=== PATIENT | male | born 1940 | race Caucasian/White ===

== ENCOUNTER 2017-01-09 15:52 | Emergency (ER) | payer OTHER ==
[~2017-01-09] VITALS: Ht 180.3 cm; Wt 148.8 kg
[~2017-01-09 15:52] MED LIST: ALLOPURINOL 10100 M1 PO; BAYER CHEWABLE81 MG PO; CENTRUM SILVER1 EAC2 PO; CITRATE OF MAG296 ML PO; CORICIDIN HBP1 EACH PO; COZAAR100 MG PO; DEPO-TESTO200 MG/1 M IM; DILTIAZEM ER120 M1 PO; DOCUSATE SODIU100 MG; FLONASE 0.05%50 MCG NASAL; HYDRALAZINE 2525 M1 PO; HYDROCODON-ACE1 EAC1 PO; HYDROCODON-ACE1 EAC2 PO; HYDROCODONE-APA1 TA1 PO; LEVAQUIN 500 M500 M7 PO; LEVOXYL75 MCG PO; LOPRESSOR50 PO; MIRALAX255 GM; MOBIC15 MG PO; PERCOCET 5-3251 EACH PO; PREDNISONE 10 M10 MG PO; ROBITUSSIN DM118 ML PO; THERA-M CAPLET1 EACH PO; TYLENOL325 MG PO; VENTOLIN HFA 1818 GM INH; XARELTO10 M1 PO
== END 2017-01-09 18:52 | disposition home or self-care (01) ==
LOC: ER 15:52
DX: S01.112A Laceration without foreign body of left eyelid and periocular area, initial encounter (principal); S80.01XA Contusion of right knee, initial encounter; I10 Essential (primary) hypertension; E03.9 Hypothyroidism, unspecified; F17.210 Nicotine dependence, cigarettes, uncomplicated; Z90.49 Acquired absence of other specified parts of digestive tract; Z88.6 Allergy status to analgesic agent; W01.0XXA Fall on same level from slipping, tripping and stumbling without subsequent striking against object, initial encounter; Y93.89 Activity, other specified; Y92.012 Bathroom of single-family (private) house as the place of occurrence of the external cause; Y99.9 Unspecified external cause status

== ENCOUNTER 2021-11-07 17:38 | Inpatient (IN) | payer OTHER ==
[~2021-11-07] VITALS: Ht 180.3 cm; Wt 144.9 kg
--- NOTE | ~2021-11-07 | EMS ---
[address] [address] EMS Patient Care Report Name: PIERCE VELAZQUEZ Room #: 363-P ADM IN M.R.#: [id number] Admission: 11/07/21 Attend Phys: Richard Wood MD Discharge: Date of : 38 Report #: [id number] THIS REPORT FOR: //name// Report Transmitted: 11/12/2021 10:07 EMS Care Summary [facility] Incident [id number] @ 11/07/2021 16:37 Incident Location [address] [place] [address] Patient PIERCE VELAZQUEZ Male, 81 Years 1940 Patient Address [address] [place] [address] Patient History Hypertension (HTN),Atrial Fibrillation,Back Pain (Chronic), Patient Allergies No known allergies, Patient Medications Furosemide, Torsemide, Allopurinol, Hydrocodone, Pantoprazole, Chief Complaint "weakness" Disposition Transported No Lights/[place] Dispatch Reason Sick Person Transported To [facility] Narrative S51 dispatched on a sick alpha. Upon arrival, pt was found sitting on a bed, alert and tracking. Pt stated that earlier in the day, he started to feel like he was having "trouble walking" along with weakness and hip pain. Pt denied falling or any LOC. Pt stated that earlier in the day, they had to call [address] [address] EMS Patient Care Report Name: PIERCE VELAZQUEZ Room #: 363-P ADM IN M.R.#: [id number] Admission: 11/07/21 Attend Phys: Richard Wood MD Discharge: Date of : 38 Report #: [id number] because he "let himself down to the floor due to feeling weak." Pt stated that he needed assistance getting up to his feet which is why he called the first time. (This is now the second time calling 911). Pt was aox4 w/ a gcs of 15. Baseline vital signs were obtained. CSS was performed, showing negative in all enriquez. PMS was still noted in all extremities. Pt was able to stand with assistance and sit back down onto the cot. (personnel was able to carry the cot inside the residence and into the bedroom). Pt was secured to the cot and taken out to the ambulance. Once in the back, another set of vital signs were obtained and IV access was established. Nasal Cannula was placed on the pt due to his Non emergent transport was initiated. En route, the pt was continuously monitored. Secondary assessment showed no significant changes within the patient. S51 arrived w/o incident. Pt was taken to room 11 upon arrival. Pt was sheet lifted from the cot to the hospital bed w/o incident. Pt report was given at bedside. Appropriate signatures were obtained. S51 then returned to service. Initial Vitals @16:49P: 89,SpO2: 93, @16:54P: 84,SpO2: 91, @17:21P: 91,SpO2: 98, @17:26 @16:49P: 94,SpO2: 92, @17:07 @16:45P: 98,R: 16,Pain: 0/10,GCS: 15,SpO2: 92, @17:03P: 94,R: 20,BP: 154/106,GCS: 15,SpO2: 96,Revised Trauma: 12, @16:47P: 90,R: 16,BP: 175/151,GCS: 15,Glucose: 110,SpO2: 92,Revised Trauma: 12, Impression Generalized Weakness Procedures @17:10 ALS AssessmentSucceeded @17:19 IV Therapy - Saline Lock 10cc (20 ga) Site: Antecubital-Left Response: UnchangedSucceeded @17:07 12-Lead ECGSucceeded @17:26 12-Lead ECGSucceeded @16:55 Oxygen FlowRate: 2 Device: Nasal Cannula (NC) Response: ImprovedSucceeded @16:49 3-Lead ECGSucceeded Timeline 16:35,Call Received [address] [address] EMS Patient Care Report Name: VELAZQUEZPIERCE BERNICE Room #: 363-P ADM IN M.R.#: [id number] Admission: 11/07/21 Attend Phys: Richard Wood MD Discharge: Date of : 38 Report #: [id number] 16:35,Psap Call 16:37,Dispatched 16:39,En Route 16:42,Initial Responder On Scene 16:42,On Scene 16:45,At Patient 16:45,BP: / M,PULSE: 98,RR: 16 R,SPO2: 92 Ox,ETCO2: ,BG: ,PAIN: 0,GCS: 15, 16:47,BP: 175/151 M,PULSE: 90,RR: 16 R,SPO2: 92 Ox,ETCO2: ,B,PAIN: ,GCS: 15, 16:49,3-Lead ECG,Succeeded, 16:49,BP: / M,PULSE: 94,RR: R,SPO2: 92 Ox,ETCO2: ,BG: ,PAIN: ,GCS: , 16:49,BP: / M,PULSE: 89,RR: R,SPO2: 93 Ox,ETCO2: ,BG: ,PAIN: ,GCS: , 16:54,BP: / M,PULSE: 84,RR: R,SPO2: 91 Ox,ETCO2: ,BG: ,PAIN: ,GCS: , 16:55,Oxygen FlowRate: 2 Device: Nasal Cannula (NC) Response: ImprovedSucceeded, 17:03,BP: 154/106 M,PULSE: 94,RR: 20 R,SPO2: 96 Ox,ETCO2: ,BG: ,PAIN: ,GCS: 15, 17:07,12-Lead ECG,Succeeded, 17:07,BP: / M,PULSE: ,RR: R,SPO2: Ox,ETCO2: ,BG: ,PAIN: ,GCS: , 17:10,ALS Assessment,Succeeded, 17:10,Depart Scene 17:19,IV Therapy - Saline Lock 10cc 20 ga Site: Antecubital-Left,Response: UnchangedSucceeded, 17:21,BP: / M,PULSE: 91,RR: R,SPO2: 98 Ox,ETCO2: ,BG: ,PAIN: ,GCS: , 17:26,12-Lead ECG,Succeeded, 17:26,BP: / M,PULSE: ,RR: R,SPO2: Ox,ETCO2: ,BG: ,PAIN: ,GCS: , 17:35,At Destination 17:40,Transfer Patient 18:05,Call Closed Disclaimer v1.1 Copyright 2021 [employer] This EMS Care Summary contains data elements from the applicable legal record (which may be displayed differently). It is designed to provide pertinent information for the following purposes: continuity of care, clinical quality, and state data reporting. The complete legal record is available to ED staff and administrators of the receiving hospital in ES's Patient Tracker. All data is provided "as is."
--- NOTE | ~2021-11-07 | EMS ---
[address] [address] EMS Patient Care Report Name: PIERCE VELAZQUEZ Room #: 363-P ADM IN M.R.#: [id number] Admission: 11/07/21 Attend Phys: Julieta Olvera MD Discharge: Date of : 38 Report #: [id number] THIS REPORT FOR: //name// Report Transmitted: 11/08/2021 06:44 EMS Care Summary [facility] Incident [id number] @ 11/07/2021 16:37 Incident Location [address] [place] [address] Patient PIERCE VELAZQUEZ Male, 81 Years 1940 Patient Address [address] [place] [address] Patient History Hypertension (HTN),Atrial Fibrillation,Back Pain (Chronic), Patient Allergies No known allergies, Patient Medications Furosemide, Torsemide, Allopurinol, Hydrocodone, Pantoprazole, Chief Complaint "weakness" Disposition Transported No Lights/[place] Dispatch Reason Sick Person Transported To [facility] Narrative S51 dispatched on a sick alpha. Upon arrival, pt was found sitting on a bed, alert and tracking. Pt stated that earlier in the day, he started to feel like he was having "trouble walking" along with weakness and hip pain. Pt denied falling or any LOC. Pt stated that earlier in the day, they had to call [address] [address] EMS Patient Care Report Name: PIERCE VELAZQUEZ Room #: 363-P ADM IN M.R.#: [id number] Admission: 11/07/21 Attend Phys: Julieta Olvera MD Discharge: Date of : 38 Report #: [id number] because he "let himself down to the floor due to feeling weak." Pt stated that he needed assistance getting up to his feet which is why he called the first time. (This is now the second time calling 911). Pt was aox4 w/ a gcs of 15. Baseline vital signs were obtained. CSS was performed, showing negative in all enriquez. PMS was still noted in all extremities. Pt was able to stand with assistance and sit back down onto the cot. (personnel was able to carry the cot inside the residence and into the bedroom). Pt was secured to the cot and taken out to the ambulance. Once in the back, another set of vital signs were obtained and IV access was established. Nasal Cannula was placed on the pt due to his Non emergent transport was initiated. En route, the pt was continuously monitored. Secondary assessment showed no significant changes within the patient. S51 arrived w/o incident. Pt was taken to room 11 upon arrival. Pt was sheet lifted from the cot to the hospital bed w/o incident. Pt report was given at bedside. Appropriate signatures were obtained. S51 then returned to service. Initial Vitals @16:49P: 89,SpO2: 93, @16:54P: 84,SpO2: 91, @17:21P: 91,SpO2: 98, @17:26 @16:49P: 94,SpO2: 92, @17:03P: 94,BP: 154/106,SpO2: 91, @16:47P: 90,BP: 175/151,SpO2: 92, @17:07 @16:45P: 98,R: 16,Pain: 0/10,GCS: 15,SpO2: 92, Impression Generalized Weakness Procedures @17:10 ALS AssessmentSucceeded @17:19 IV Therapy - Saline Lock 10cc (20 ga) Site: Antecubital-Left Response: UnchangedSucceeded @17:07 12-Lead ECGSucceeded @17:26 12-Lead ECGSucceeded @16:55 Oxygen FlowRate: 2 Device: Nasal Cannula (NC) Response: ImprovedSucceeded Timeline 16:35,Call Received 16:35,Psap Call [address] [address] EMS Patient Care Report Name: PIERCE VELAZQUEZ Room #: 363-P ADM IN M.R.#: [id number] Admission: 11/07/21 Attend Phys: Julieta Olvera MD Discharge: Date of : 38 Report #: [id number] 16:37,Dispatched 16:39,En Route 16:42,Initial Responder On Scene 16:42,On Scene 16:45,At Patient 16:45,BP: / M,PULSE: 98,RR: 16 R,SPO2: 92 Ox,ETCO2: ,BG: ,PAIN: 0,GCS: 15, 16:47,BP: 175/151 M,PULSE: 90,RR: R,SPO2: 92 Ox,ETCO2: ,BG: ,PAIN: ,GCS: , 16:49,BP: / M,PULSE: 94,RR: R,SPO2: 92 Ox,ETCO2: ,BG: ,PAIN: ,GCS: , 16:49,BP: / M,PULSE: 89,RR: R,SPO2: 93 Ox,ETCO2: ,BG: ,PAIN: ,GCS: , 16:54,BP: / M,PULSE: 84,RR: R,SPO2: 91 Ox,ETCO2: ,BG: ,PAIN: ,GCS: , 16:55,Oxygen FlowRate: 2 Device: Nasal Cannula (NC) Response: ImprovedSucceeded, 17:03,BP: 154/106 M,PULSE: 94,RR: R,SPO2: 91 Ox,ETCO2: ,BG: ,PAIN: ,GCS: , 17:07,12-Lead ECG,Succeeded, 17:07,BP: / M,PULSE: ,RR: R,SPO2: Ox,ETCO2: ,BG: ,PAIN: ,GCS: , 17:10,ALS Assessment,Succeeded, 17:10,Depart Scene 17:19,IV Therapy - Saline Lock 10cc 20 ga Site: Antecubital-Left,Response: UnchangedSucceeded, 17:21,BP: / M,PULSE: 91,RR: R,SPO2: 98 Ox,ETCO2: ,BG: ,PAIN: ,GCS: , 17:26,12-Lead ECG,Succeeded, 17:26,BP: / M,PULSE: ,RR: R,SPO2: Ox,ETCO2: ,BG: ,PAIN: ,GCS: , 17:35,At Destination 17:40,Transfer Patient 18:05,Call Closed Disclaimer v1.1 Copyright 2021 [employer] This EMS Care Summary contains data elements from the applicable legal record (which may be displayed differently). It is designed to provide pertinent information for the following purposes: continuity of care, clinical quality, and state data reporting. The complete legal record is available to ED staff and administrators of the receiving hospital in [employer]'s Patient Tracker. All data is provided "as is."
[2021-11-07 17:39] VITALS: BP 195/103
[2021-11-07 18:02] LABS: ABSOLUTE NEUTROPHILS 4.6 thou/uL (1.4-8.2); BASOPHILS 0.6 % (0.0-2.0); EOSINOPHILS 2.9 % (0.0-3.0); HEMATOCRIT 40.6 % (42.0-52.0); HEMOGLOBIN 12.7 gm/dL (14.0-18.0); LYMPHOCYTES 8.9 % (24.0-44.0); MCH 29.4 pg (26.0-34.0); MCHC 31.3 g/dL (28.0-37.0); MONOCYTES 13.6 % (1.0-8.0); PLATELET COUNT 207 thou/uL (150-400); RBC 4.32 mil/uL (4.50-6.00); RDW 14.2 % (10.5-14.5); WBC 6.2 thou/uL (4.0-11.0)
--- NOTE | 2021-11-07 18:08 | NUR ---
PT PRESENTS FROM HOME C/O OF WEAKNESS, LIVES AT HOME, REPORTS WEAKNESS STARTED THIS MORNING AT 10AM. PT REPORTS SOME TINGLING GENERALIZED THROUGHOUT BODY AT THAT TIME. PT DENIES ANY DIFFICULTY SPEAKING OR SLURRED SPEACH, DENIES ANY UNEQUAL STRENGTH AT THAT TIME. PT REPORTS "WEAKNESS DUE TO PAIN". PT REPORTED TO HAVE TAKEN SOME OF HIS OXYCODONE TODAY DUE TO CHRONIC HIP PAIN. PT DENIES FURTHER COMPLAINTS. ERP AT BEDSIDE TO R/O CODE STROKE.
[2021-11-07 18:10] LABS: CREATININE 1.3 mg/dL (0.7-1.3); POTASSIUM 3.7 mmol/L (3.5-5.1)
[2021-11-07 18:20] LABS: ALBUMIN 3.3 g/dL (3.4-5.0); TOTAL BILIRUBIN 0.3 mg/dL (0.2-1.0); TOTAL PROTEIN 7.7 g/dL (6.4-8.2)
[2021-11-07 18:57] LABS: URINE BILIRUBIN NEGATIVE (Negative); URINE BLOOD NEGATIVE (Negative); URINE CLARITY CLEAR; URINE COLOR YELLOW; URINE GLUCOSE-RANDOM* NEGATIVE (Negative); URINE KETONES NEGATIVE (Negative); URINE LEUKOCYTES-REFLEX NEGATIVE (Negative); URINE NITRITE-REFLEX NEGATIVE (Negative); URINE PROTEIN (DIPSTICK) NEGATIVE (Negative); URINE SPECIFIC GRAVITY 1.015 (1.005-1.035); URINE UROBILINOGEN 0.2 E.U./dl (0.2-1.0)
[2021-11-07 19:06] LABS: AMP/METHAMP Negative (Negative); BARBITURATES Negative (Negative); BENZODIAZEPINES Negative (Negative); COCAINE Negative (Negative); METHADONE Negative (Negative); OPIATES POSITIVE (Negative); PCP Negative (Negative)
--- NOTE | 2021-11-07 19:19 | NUR ---
pt report given to COBY cardoza
--- NOTE | 2021-11-07 21:01 | NUR ---
TURNED OFF 2LITERS NC OXYGEN TO CHECK ROOM AIR PULSE OX. UNABLE TO MAINTAIN SATS OVER 88%. COUGHED SEVERAL TIMES DURING THIS TIME, DID NOT IMPROVE SATS. OXYGEN NOW AT 3LITERS NC.
[2021-11-07 23:09] VITALS: BP 183/96
[2021-11-08] VITALS (7 sets, daily range): BP systolic 104–180; BP diastolic 66–122
--- NOTE | 2021-11-08 02:40 | NUR ---
PT ADMITTED TO 363 FROM ER FROM HOME FOR WEAKNESS, COUGH, AND COVID +. PT IS VERY [place] AND IS A POOR HISTORIAN. HIS DID NOT ANWSER THE PHONE. ELECTRIC MULE OPERATOR TRIED TO CALL HER FOR INFORMATION AND GET UPDATED MED LIST. PT DOES NOT KNOW ALL HIS MEDS. WILL ATTEMPT TO REACH IN AM. BP ELEVATED UPON ARRIVAL TO THE FLOOR. HYDRALAZINE GIVEN IV. NOTIFIED ELECTRIC MULE OPERATOR HYDRALAZINE ONLY BROUGHT BP DOWN TO 160/100. NO ORDERS GIVEN FOR NOW. PT IS NOW SLEEPING QUIETLY. NO S/S DISTRESS. UNLABORED ON 2LNC. LUNGS HAVE FAINT CRACKLES AND ARE DIMINISHED. LASIX GIVEN PER GUIDE EXCURSION WHEN PT CAME TO THE FLOOR. PT INC OF URINE AND VOIDS IN THE URINAL DARK YELLOW URINE. INSTRUCTED PT ON FALL PRECAUTIONS AND CALL LIGHT, ETC. PT DENIED PAIN AT 0200 WHEN I ATTEMPTED TO GIVEN HIM THE HYDROCODONE HE REQUESTED FOR BACK AND LLE PAIN. ELECTRIC MULE OPERATOR NOTIFIED I WAS UNABLE TO GET HIM TO TAKE THE PAIN PILL AND WOULD NEED ANOTHER BP MED TO GET BP DOWN. NO ORDERS GIVEN FOR NOW E BP. BED DOWN. CALL LIGHTIN REACH. BED ALARM IS ON. CAREPLAN INITIATED. WILL CONTINUE TO MONITOR PT FOR CHANGES.
--- NOTE | 2021-11-08 06:48 | NUR ---
PT ALERT X3. FORGETFULL TO TIME THIS AM. FOLLOWS COMMANDS. PT IS WEAK. VSS AFEBRILE THIS AM. SAT 96% THIS AM ON 2LNC. INC OF URINE SEVERAL TIMES AFTER LASIX. LUNGS SOUND DIMINISHED WITH LESS CRACKLES THIS AM. DENIED BACK OR LLE PAIN THIS AM. NO S/S DISTRESS.
[2021-11-08 06:50] LABS: HEMATOCRIT 42.5 % (42.0-52.0); HEMOGLOBIN 13.1 gm/dL (14.0-18.0); MCH 29.6 pg (26.0-34.0); MCHC 30.8 g/dL (28.0-37.0); MCV 96.1 fL (80.0-100.0); RBC 4.42 mil/uL (4.50-6.00); RDW 14.7 % (10.5-14.5); WBC 6.1 thou/uL (4.0-11.0)
[2021-11-08 06:53] LABS: CALCIUM 9.4 mg/dL (8.5-10.1); CREATININE 1.3 mg/dL (0.7-1.3); POTASSIUM 3.6 mmol/L (3.5-5.1)
--- NOTE | 2021-11-08 08:00 | EKG ---
[place] [address] [facility] [place] [address] ELECTROCARDIOGRAM REPORT Name: KENNEDY VELAZQUEZETT BERNICE Room #: 363- ADM IN M.R.#: [id number] Admission: 11/07/21 Attend Phys: Julieta Olvera MD Discharge: Date of : 38 Report #: [id number] [facility] ED Test Date: 2021-11-07 Test Time: 17:59:21 Pat Name: PIERCE VELAZUQEZ Department: Room: [facility] Gender: M Associate Media Planner: : 1940 Requested By: Marisol Oquendo Order Number: [id number] MD: Scout Torres Measurements Intervals [place] Rate: 90 P: 107 NM: 161 QRS: -39 QRSD: 130 T: -10 QT: 411 QTc: 503 Interpretive Statements Atrial-sensed ventricular-paced rhythm No further analysis attempted due to paced rhythm Compared to ECG 04/20/2015 11:01:31 Sinus rhythm no longer present ST (T wave) deviation no longer present Electronically Signed On 11-08-2021 7:59:58 TRAIN OPERATIONS SUPERVISOR by Scout Torres [email or web address] <ELECTRONICALLY SIGNED> By: Scout Torres MD, [facility] 11/08/21 0759 1759 1759 Scout Torres MD, [facility] /EPI
[2021-11-08 11:27] LABS: HCO3 29.8 mmol/L (22.0-26.0); PCO2 55.3 mmHg (35.0-45.0); PO2 84.3 mmHg (80.0-100.0); pH 7.349 (7.360-7.450); sO2 95.7 % (92.0-98.0)
[2021-11-08] MEDS ORDERED: RANITIDINE PO (17:50)
[2021-11-08] MEDS ORDERED: CARVEDILOL12.5 MG PO (17:52)
[2021-11-08] MEDS ORDERED: FLOMAX0.4 MG PO (17:52)
[2021-11-08] MEDS ORDERED: TORSEMIDE20 MG PO (17:53)
[2021-11-08] MEDS ORDERED: ENTRESTO 97 MG1 EACH PO (17:54)
[2021-11-08] MEDS ORDERED: B12-FOLIC ACID1 EACH PO (17:54)
--- NOTE | 2021-11-08 18:18 | NUR ---
PT A/O X 2-4. PT EXTREMELY FORGETFUL. DURING MORNING ASSESSMENT PT WAS A/O X 4. APPROX 11:30 DR STAFFORD WENT INTO PTS ROOM AND NOTICED PT WAS ONLY A/O X 1. CALLED RAPID RESPONSE ON PT. EKG WAS NEGATIVE, HEAD CT WAS NEGATIVE. PT STATED AFTER INCIDENT TO THIS RN "SOMETIMES IM HARD TO WAKE UP, THATS NORMAL FOR ME". PT A/O X 3-4 THIS AFTERNOON. ON 2 L NC. SPOKE WITH AARON, PT SON AND DPMIRANDA, AND GAVE UPDATE. WILL CONTINUE TO MONITOR.
[2021-11-09 05:00] VITALS: BP 145/86
[2021-11-09 05:15] LABS: ALBUMIN 2.9 g/dL (3.4-5.0); CALCIUM 8.6 mg/dL (8.5-10.1); CREATININE 1.1 mg/dL (0.7-1.3); POTASSIUM 4.5 mmol/L (3.5-5.1); TOTAL BILIRUBIN 0.3 mg/dL (0.2-1.0); TOTAL PROTEIN 6.9 g/dL (6.4-8.2)
--- NOTE | 2021-11-09 06:48 | NUR ---
PROGRESS PT LETHARGIC AT START OF SHIFT BUT WOKE EASILY AND RESPONDING TO QUESTIONS. REPORTED BACK PAIN AT A LEVEL OF 5, GAVE HYDROCODONE X2 WITH EFFECT PT SLEPT AFTER. INCONTINENT X 1 AND EXTERNAL CATHETER APPLIED WORKING WITHOUT DIFFICULTY. VSS CONTINUE POC.
--- NOTE | 2021-11-09 07:48 | HC ---
[facility] [address] CONSULTATION Name: PIERCE VELAZQUEZ Room #: 363-P ADM IN M.R.#: [id number] Admission: 11/07/21 Attend Phys: Richard Wood MD Discharge: Date of : 38 Report #: [id number] THIS REPORT FOR: cc: FAM - Family physician unknown FAM - Family physician unknown Arya Logan MD ~ DATE OF SERVICE: 11/08/2021 INFECTIOUS DISEASE CONSULTATION ATTENDING PHYSICIAN: Dr. Wood. REASON FOR EVALUATION: COVID-19 infection, complicated by pneumonitis and respiratory failure. HISTORY OF PRESENT ILLNESS: Chart reviewed. The patient examined. This is an 81-year-old gentleman with history of hypertension and obesity, who was admitted after becoming critically weak, did have a nonproductive cough and some progressive dyspnea as well. He was evaluated and found to be hypoxic with saturations of upper 80s on room air. He was confirmed to have a positive coronavirus-19 test. Urinalysis was otherwise unremarkable. Chest x-ray showed no acute process; however, has required supplemental oxygen 4 liters per nasal cannula. Pro-calcitonin less than 0.05. He has not had fevers since admission. Current oxygen therapy is at 2 liters. He was empirically started on dexamethasone and vitamins. ALLERGIES: CELEBREX. CURRENT MEDICATIONS: Include dexamethasone, sliding scale insulin, enoxaparin, ascorbic acid, famotidine, hydrocodone as needed, zinc, ipratropium, albuterol inhaler and p.r.n. ondansetron. PAST MEDICAL HISTORY: Hypertension, hypothyroidism, previous knee replacements and obesity. SOCIAL HISTORY: Former smoker, no ethanol, no illicit drug use. FAMILY HISTORY: Noncontributory. REVIEW OF SYSTEMS: Otherwise, unremarkable. PHYSICAL EXAMINATION: GENERAL: He is alert, appears ill, not overtly toxic. He is mildly encephalopathic, appears pale, moderate distress. VITAL SIGNS: Temperature 98, pulse 102, respirations 16, blood pressure 104/69. SKIN: Warm, dry, no rashes. [facility] [address] [place] [address] CONSULTATION Name: PIERCE VELAZQUEZ BERNICE Room #: 363-P [facility] IN M.R.#: [id number] Admission: 11/07/21 Attend Phys: Richard Wood MD Discharge: Date of : 38 Report #: [id number] HEENT: Normocephalic. Extraocular muscles intact. Nasal cannula in place. NECK: Supple. LUNGS: Diminished overall. Scattered crackles at the bases. HEART: Distant, borderline tachycardic. Appears to be regular. I do not appreciate a murmur. ABDOMEN: Obese, firm. No peritoneal signs. GENITOURINARY AND RECTAL: Deferred. LABORATORY DATA: CTA of the head and neck, nothing acute. ABGs: A pH of 7.349, pCO2 of 55.3, pO2 of 84.3 on 2 liters. ProBNP of 1712. Chest x-ray without acute process. Sed rate of 30. Pro-calcitonin less than 0.05. TSH of 3.021. CBC: White count 6.2, H and H 12.7 and 40.6 and platelets of 207. ASSESSMENT AND PLAN: COVID-19 infection, complicated by hypoxia. We will initiate therapy with remdesivir in addition to the corticosteroids. He remains quite tenuous at this point, certainly at risk for clinical deterioration given his overall health status. Monitor expectantly. Could add immune modulating treatment as well as required. <ELECTRONICALLY SIGNED> By: Arya Logan MD 11/09/21 0748 1439 2117 Arya Logan MD /nt
[2021-11-09 07:49] VITALS: BP 149/79
--- NOTE | 2021-11-09 08:37 | EKG ---
[address] [place] [address] ELECTROCARDIOGRAM REPORT Name: PIERCE VELAZQUEZ Room #: 363-P ADM IN M.R.#: [id number] Admission: 11/07/21 Attend Phys: Richard Wood MD Discharge: Date of : 38 Report #: [id number] [facility] Test Date: 2021-11-08 Test Time: 11:19:37 Pat Name: PIERCE VELAZQUEZ Department: Room: 363 P Gender: M Carbon Setter: HAY : 1940 Requested By: Richard Wood Order Number: [id number] MD: Scout Torres Measurements Intervals [place] Rate: 91 P: 59 OR: 157 QRS: -59 QRSD: 135 T: -20 QT: 399 QTc: 492 Interpretive Statements Atrial-sensed ventricular-paced rhythm No further analysis attempted due to paced rhythm Compared to ECG 11/07/2021 17:59:21 No significant changes Electronically Signed On 11-09-2021 8:37:26 SEPTIC TANK SERVICE TECHNICIAN by Scout Torres [email or web address] <ELECTRONICALLY SIGNED> By: Scout Torres MD, [facility] 11/09/21 0837 1119 1119 Scout Torres MD, [facility] /EPI
[2021-11-09 11:29] VITALS: BP 149/79
--- NOTE | 2021-11-09 12:41 | NUR ---
RD consulted r/t obesity. Pt with BMI 47, extreme class III obesity. He is admitted with hypoxia et covid+. Noted with BLE edema, on lasix with good diuresis noted. 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 Intakes on heart healthy diet increased throughout the day yesterday with 10% at bkft, 30% at lunch and 50% at dinner. On insulin, steroid, IVF, Vit C and zinc. Suspect increase in po intake with progression of tx of covid as he gains strength. Will add glucerna at lunch until po is consistently >75% at meals. Low nutrition risk with interventions initiated.
--- NOTE | 2021-11-09 13:43 | NUR ---
INITIAL ASSESSMENT: Received consult. LISS reviewed chart and spoke with nursing and attending physician. Pt was admitted from home due to weakness/hypoxia. Pt had positive COVID test. Placed in Enhanced Isolation. Per chart, pt has received the Pfizer COVID vaccination. DIRECTOR OF REAL ESTATE and Code Stroke called yesterday. Pt is currently afebrile and on 2-3L of O2. Pt is on IV steroids and Remdesivir. Therapy has been ordered. LISS placed call to pt's room. No answer. LISS spoke with pt's son, Dawson, via phone ([phone]). Introduced role of SW. Pt is normally alert/orientated x 4 and lives at home with his and Dawson. Prior to admission, pt was using a walker. There are 2 steps to enter the home. No steps inside. Pt was not on O2 prior to admission. Pt's has home O2 in place through [facility]. If pt needs home O2, they would prefer to use the same provider. Pt's PCP is Dr. Genesis Guzmán at [facility]. Pt has used [facility] in the past and would like to use them again. Awaiting therapy evals at this time. LISS is following to assist as needed with discharge planning.
[2021-11-09 15:33] VITALS: BP 153/89
--- NOTE | 2021-11-09 17:27 | NUR ---
PT A/O X 4. PT COMPLAINS OF BACK PAIN 03/30, WITH GOOD RELIEF FROM MEDICATION. PT INCONTINENT OF BLADDER AND BOWELS. SPOKE WITH FAMILY TODAY AND GAVE UPDATE. NO CURRENT NEEDS, WILL CONTINUE TO MONITOR.
[2021-11-09 19:12] VITALS: BP 153/92
--- NOTE | 2021-11-10 04:53 | NUR ---
ASSUMED PT CARE AT 1900. PT HAS NO C/O OF PAIN, NAUSEA/VOMITTING. VSS AFEBRILE. PT IS INCONTINENT OF BOTH BOWEL AND BLADDER. COMPLETED BED BATH DURING THIS SHIFT. PT IS ABLE TO MAKE NEEDS KNOWN. CONTINUE WITH PLAN OF CARE.
[2021-11-10 07:03] LABS: ALBUMIN 2.9 g/dL (3.4-5.0); CALCIUM 8.8 mg/dL (8.5-10.1); CREATININE 1.2 mg/dL (0.7-1.3); POTASSIUM 3.6 mmol/L (3.5-5.1); TOTAL BILIRUBIN 0.1 mg/dL (0.2-1.0); TOTAL PROTEIN 7.2 g/dL (6.4-8.2)
[2021-11-10 07:41] VITALS: BP 154/75
--- NOTE | 2021-11-10 09:40 | 2DMMODE ---
[address] [address] 2 D/M-MODE ECHOCARDIOGRAM Name: PIERCE VELAZQUEZ Room #: 363-P ADM IN M.R.#: [id number] Admission: 11/07/21 Attend Phys: Richard Wood MD Discharge: Date of : 38 Report #: [id number] THIS REPORT FOR: cc: FAM - Family physician unknown FAM - Family physician unknown Calos Benz MD [facility] ~ APPROVED REPORT Study performed: 11/10/2021 08:33:56 EXAM: Limited 2D, Doppler, and color-flow Echocardiogram Patient Location: Bedside Room #: 363 Status: routine BSA: 2.61 HR: 68 bpm BP: 154/75 mmHg Rhythm: Sinus arrhythmia Other Information Study Quality: Poor Technically limited study due to morbid obesity. Indications Bilateral leg edema. COVID + Aortic Valve AoV Peak Darrell.: 1.75 m/s AO Peak Gr.: 12.25 mmHg Tricuspid Valve RAP Estimate: 5.00 mmHg Left Ventricle Poor visualization of the left ventricle. Systolic function appears to be normal. Regional wall motion is not well visualized but grossly normal. Left ventricular systolic function is normal. LVEF is 55-60%. Mild diastolic dysfunction Right Ventricle Right ventricle is not well visualized; appers normal in function. [facility] [address] [address] 2 D/M-MODE ECHOCARDIOGRAM Name: PIERCE VELAZQUEZ Room #: 363-P ADM IN M.R.#: [id number] Admission: 11/07/21 Attend Phys: Richard Wood, Discharge: Date of : 38 Report #: [id number] Probable normal atrial size. Aortic Valve The aortic valve poorly visualized. No aortic regurgitation is noted. There is no aortic valvular stenosis. Mitral Valve The mitral valve is normal in structure. There is no mitral valve regurgitation noted. No evidence of mitral valve stenosis. Tricuspid Valve Tricuspid valve is poorly visualized. There is no tricuspid valve regurgitation noted. Unable to assess PA pressure. Pulmonic Valve Pulmonic valve is not well visualized. Great Vessels Aortic root is not well visualized. IVC is normal in size and collapses >50% with inspiration. Pericardium There is no pericardial effusion. <Conclusion> Limited study Left ventricular systolic function is normal. Regional wall motion is not well visualized but grossly normal. LVEF is 55-60%. Mild diastolic dysfunction The aortic valve poorly visualized. No aortic regurgitation or stenosis. The mitral valve is normal in structure. No mitral valve regurgitation. There is no pericardial effusion. <ELECTRONICALLY SIGNED> By: Calos Benz MD, [facility] 11/10/2140 0940 Calos Benz MD, FACC /INF
[2021-11-10 12:18] VITALS: BP 154/75
[2021-11-10 14:37] VITALS: BP 154/75
--- NOTE | 2021-11-10 14:47 | NUR ---
LISS reviewed chart and spoke with nursing and attending physician. Pt remains in Enhanced Isolation due to COVID. Pt is afebrile and on 2L of O2. Pt is on IV steroids and Remdesivir. Possible weekend discharge. [facility] can accept pt on service. LISS faxed home O2 referral to [facility] and spoke with intake. Portable tank will be delivered to the hospital if pt needs home O2. Pt will need a rest/exercise oximetry prior to discharge to determine home O2 needs. Testing and script for O2 will need to be faxed to [facility]. Discharge ppwk will need to be faxed to . LISS spoke with pt's son, Dawson, to provide update. Dawson is aware and in agreement with discharge plan. Pt's family will be able to provide transportation home. Contact info for and [facility] [place] placed in pt's discharge summary. LISS is following to assist as needed. [facility] -- [facility]--
[2021-11-10 15:09] VITALS: BP 147/75
--- NOTE | 2021-11-10 16:34 | NUR ---
PT IS A/O X 4. PT COMPLAINS OF BACK PAIN WITH GOOD RELIEF FROM PAIN MEDICATION. PT INCONTINENT. PT ON 2 L NC. PT HAS 2+ PITTING EDEMA BILATERALLY ON LE. FALL PRECAUTIONS IN PLACE. WILL CONTINUE TO MONITOR.
[2021-11-10 19:45] VITALS: BP 155/98
[2021-11-11 04:30] VITALS: BP 141/89
--- NOTE | 2021-11-11 04:49 | NUR ---
ASSUMED PT CARE AT 1900. PT WAS ALERT & ORIENTED X 3-4 AT BEGINNING OF SHIFT. PT BEGAN EXPERIENCING ALTERED MENTAL STATUS AT AROUND 0415. PT ATTEMPTED TO GET OUT OF BED AND WAS EXPERIENCING CONFUSION AND WAS DISORIENTED. VITAL SIGNS ARE STABLE. HOWEVER PT IS INCONTINENT OF BLADDER AND HAS FOUL SMELLING URINE. CONTACTED DIE CLEANER AND PROVIDED UPDATE ON MENTAL STATUS CHANGE. RECEIVED ORDERS FOR A UA. WILL CONTINUE TO MONITOR.
[2021-11-11 05:27] LABS: ALBUMIN 3.1 g/dL (3.4-5.0); CALCIUM 8.7 mg/dL (8.5-10.1); CREATININE 1.2 mg/dL (0.7-1.3); TOTAL BILIRUBIN 0.3 mg/dL (0.2-1.0); TOTAL PROTEIN 7.4 g/dL (6.4-8.2)
[2021-11-11 05:34] LABS: POTASSIUM 4.1 mmol/L (3.5-5.1)
[2021-11-11 07:09] LABS: URINE BILIRUBIN NEGATIVE (Negative); URINE BLOOD 2+ (Negative); URINE CLARITY CLEAR; URINE COLOR YELLOW; URINE GLUCOSE-RANDOM* NEGATIVE (Negative); URINE KETONES NEGATIVE (Negative); URINE LEUKOCYTES NEGATIVE (Negative); URINE NITRITE NEGATIVE (Negative); URINE PROTEIN (DIPSTICK) NEGATIVE (Negative); URINE SPECIFIC GRAVITY 1.015 (1.005-1.035); URINE UROBILINOGEN 0.2 E.U./dl (0.2-1.0)
[2021-11-11 07:30] LABS: BACTERIA 1-9 Few /HPF (None Seen); CASTS None Seen /LPF (None Seen); CRYSTALS None Seen /LPF (None Seen); SQUAMOUS None Seen /LPF (0-3); URINE WBC 1-5 Rare /HPF (NONE SEEN)
[2021-11-11 07:51] VITALS: BP 161/99; BP 174/96
[2021-11-11 16:08] VITALS: BP 180/94
[2021-11-11 20:28] VITALS: BP 186/87
[2021-11-12 00:03] VITALS: BP 165/92
[2021-11-12 03:23] VITALS: BP 170/79
--- NOTE | 2021-11-12 05:25 | NUR ---
ASSUMED PT CARE AT 1900. PT IS ALERT & ORIENTED X 1-2. PT HAD PERIODS OF CONFUSION THROUGHOUT SHIFT. PT REMAINS INCONTINENT OF BLADDER. EXTERNAL CATH WAS PLACED HOWEVER PT REMOVED. PT REMOVED HIS SOLDERER FURNACE MULTIPLE TIMES DURING THE NIGHT. PT IS PROGRESSING SLOWLY TOWARDS POC GOALS. CONTINUE WITH PLAN OF CARE.
[2021-11-12 06:04] LABS: ALBUMIN 3.1 g/dL (3.4-5.0); CALCIUM 8.8 mg/dL (8.5-10.1); CREATININE 1.1 mg/dL (0.7-1.3); POTASSIUM 3.4 mmol/L (3.5-5.1); TOTAL BILIRUBIN 0.4 mg/dL (0.2-1.0); TOTAL PROTEIN 7.2 g/dL (6.4-8.2)
[2021-11-12 07:59] VITALS: BP 175/102
[2021-11-12 15:14] VITALS: BP 157/90
[2021-11-12 20:17] VITALS: BP 165/116
[2021-11-13 03:14] VITALS: BP 162/99
--- NOTE | 2021-11-13 06:25 | NUR ---
Pt. oriented to person then later on able to state he is at the hospital and it's October. He has intermittent confusion and very impulsive. C/o back pain and when asked how bad is it he stated it's off the chart. Hydrocodone given last night and again this am. O2 at 1.5L/NC , which he takes off intermittently. He has been frequently reoriented and redirected. Bed alarm on for safety. Incontinent of bladder. Tried external cath but did not work since he pulled it out.
[2021-11-13 07:49] VITALS: BP 163/102
[2021-11-13 10:40] LABS: HEMATOCRIT 45.4 % (42.0-52.0); HEMOGLOBIN 13.8 gm/dL (14.0-18.0); MCH 29.4 pg (26.0-34.0); MCHC 30.4 g/dL (28.0-37.0); MCV 96.6 fL (80.0-100.0); RBC 4.7 mil/uL (4.50-6.00); RDW 14.8 % (10.5-14.5); WBC 7.4 thou/uL (4.0-11.0)
[2021-11-13 10:44] LABS: ALBUMIN 3.1 g/dL (3.4-5.0); CREATININE 0.8 mg/dL (0.7-1.3); TOTAL BILIRUBIN 0.6 mg/dL (0.2-1.0)
[2021-11-13 11:01] LABS: CALCIUM 8.6 mg/dL (8.5-10.1)
[2021-11-13 11:05] LABS: POTASSIUM 4.7 mmol/L (3.5-5.1)
[2021-11-13 11:40] VITALS: BP 139/90
[2021-11-13 11:42] LABS: FOLIC ACID 7.2 ng/mL (8.6-58.9)
--- NOTE | 2021-11-13 12:13 | NUR ---
LISS reviewed chart and spoke with nursing and attending physician. Pt remains in Enhanced Isolation due to COVID. Pt is afebrile and on 1.5L of O2. Pt is progressing towards goals for discharge. Recommendation made for pt to go to post-acute care. LISS was provided with pt's son/DPOA, Hermes's contact info ([phone]). LISS spoke with Hermes via phone. Introduced role of LISS. Hermes states that pt and his live at home. Pt's son, Dawson, lives with them. Hermes reports that family is agreeable with considering post-acute placement for continued rehab services. Hermes states Dawson is not always at home to provide assistance. LISS discussed options for post-acute placement: acute rehab v. SNF. Pt's son prefers acute rehab. LISS explained need for insurance auth from an in-network facility. Pt's son verbalized understanding. Preference is [facility] acute rehab. [facility] is second choice. LISS discussed with rehabilitation counsellor, who states they will submit for insurance auth later today after therapy sees pt. Awaiting input from at this time. LISS is following to assist as needed with discharge planning.
[2021-11-13 15:57] VITALS: BP 160/94
--- NOTE | 2021-11-13 17:23 | NUR ---
CANE FURNITURE MAKER SPOKE WITH MARIE WITH [facility] WHO STATED [facility] NOT IN NETWORK. SHE WENT ON TO SAY THAT PATIENT HAD OON BENEFITS THAT MADE IT THE SAME FINANCIALLY FOR THE PATIENT TO COME TO [facility] IT WOULD BE FOR IN NETWORK FACILITY. (REFERENCE NUMBER [id number]). AUTHORIZATION FOR ACUTE REHAB STAY SUBMITTED THIS DATE. WILL AWAIT DECISION.
[2021-11-13 19:32] VITALS: BP 156/97
[2021-11-14 03:24] VITALS: BP 148/89
[2021-11-14 04:04] LABS: HEMATOCRIT 42.3 % (42.0-52.0); HEMOGLOBIN 13.5 gm/dL (14.0-18.0); MCH 29.1 pg (26.0-34.0); MCHC 31.9 g/dL (28.0-37.0); RBC 4.63 mil/uL (4.50-6.00); RDW 13.9 % (10.5-14.5); WBC 9.1 thou/uL (4.0-11.0)
[2021-11-14 04:52] LABS: MCV 91.3 fL (80.0-100.0)
[2021-11-14 05:29] LABS: CREATININE 1.2 mg/dL (0.7-1.3)
[2021-11-14 06:01] LABS: POTASSIUM 3.3 mmol/L (3.5-5.1)
--- NOTE | 2021-11-14 06:32 | NUR ---
Patient progressing towards outcome goals. Oxygenation optimal on room air but placed on 2L/NC for comfort. Incontinent of bowel and bladder. Frequently inpulsive, forgetful. Has made several attempts to get out of bed, getting agitated, wants to go home, wants to visit his . 100% paced. BP stable. Taking meds with fluids without difficulty.
[2021-11-14 08:13] VITALS: BP 145/74
--- NOTE | 2021-11-14 14:13 | NUR ---
LSIS reviewed chart and spoke with nursing and attending physician. Pt remains in Enhanced Isolation due to COVID. Pt is afebrile and on room air. Psych consulted due to agitation/delirium. Case discussed with [facility] rehabilitation medicine physician. Pt has been accepted. Request for insurance authorization was made yesterday afternoon. Awaiting input from pt's insurance at this time. LISS left voice message for pt's son/DPOA, Hermes, to provide update. LISS is following to assist as needed with discharge planning.
[2021-11-14 15:38] VITALS: BP 107/70
[2021-11-14 19:25] VITALS: BP 118/72
--- NOTE | 2021-11-14 20:14 | NUR ---
PATIENT STARTED HAVING SYMPTOMS OF COVID NOV 05 PER SON...
--- NOTE | 2021-11-15 04:07 | NUR ---
ASSUMED PT CARE AT 1900. PT IS ALERT & ORIENTED X 1-2. PT HAS BEEN RESTLESS THIS SHIFT. ATTEMPTED TO GET OUT OF BED MULTIPLE TIMES. ADMINISTERED HALODOL AND SEROQUEL PRN AND NOTED RELIEF. PT HAD C/O OF BACK PAIN. ADMINISTERED NORCO PRN AND NOTED RELIEF. CURRENTLY ON 1.5L O2 NC AND O2 SATS > 95%. ALL NEEDS ARE MET AT THIS TIME. WILL CONTINUE TO MONITOR.
[2021-11-15 04:20] VITALS: BP 124/64
[2021-11-15 08:12] VITALS: BP 113/77
[2021-11-15 09:24] LABS: HEMATOCRIT 42.7 % (42.0-52.0); HEMOGLOBIN 13.5 gm/dL (14.0-18.0); MCH 29.4 pg (26.0-34.0); MCHC 31.7 g/dL (28.0-37.0); RBC 4.59 mil/uL (4.50-6.00); RDW 14.2 % (10.5-14.5); WBC 9.8 thou/uL (4.0-11.0)
[2021-11-15 09:32] LABS: CREATININE 1.8 mg/dL (0.7-1.3); POTASSIUM 3.5 mmol/L (3.5-5.1)
--- NOTE | 2021-11-15 13:46 | NUR ---
PATIENT IS ALERT AND OREIENTED TO SELF THIS SHIFT. PATIENT IS HARD OF HEARING. PATIENT IS EXTREMELY CONFUSED THIS SHIFT. PATIENT IS ON ENHANCED PRECAUTIONS. PATIENT IS ON ROOM AIR WHEN AWAKE AND 1-2L WHEN ASLEEP. PATIENT IS MEDSURBeem AND HAS BEEN RUNNING VPACED THIS SHIFT. PATIENT IS INCONTINENT OF URINE. PATIENT TRIED TO USE THE URINAL BUT WAS UNSUCCESSFUL. PATIENT HAS REDNESS TO HIS GROIN AREA. SKIN BARRIER OINTMENT IS APPLIED. PATIETN GETS UP WITH TWO ASSIST AND ALOT OF PROMPTING. PATIENT HAS AN IV IN HIS RIGHT HAND. IV IS PATENT AND SALINE LOCKED. PATIENT WILL CONTINUE TO BE MONITORED.
--- NOTE | 2021-11-15 14:21 | NUR ---
LISS reviewed chart and spoke with nursing and attending physician. Pt remains in Enhanced Isolation due to COVID. Pt is afebrile and on 1.5L of O2. Pt has IV haldol ordered for agitation. LISS discussed case with [facility] rehab office coordinator. Awaiting input from insurance at this time. LISS spoke with pt's son, Hermes, via phone to provide update. Pt's son verbalized understanding. LISS is following to assist as needed with discharge planning.
[2021-11-15 15:47] VITALS: BP 93/54
--- NOTE | 2021-11-15 17:23 | NUR ---
AUTHORIZATION DENIED BY INSURANCE THIS DATE, BUT PEER TO PEER OFFERED. CPC CODER SPOKE WITH DR. JOHNSON WHO IS WILLING TO DO PEER TO PEER. PATIENT'S SON JOSÉ LUIS AND CAD DESIGN ENGINEER CALLED AND UPDATED. WILL SCHEDULE PEER TO PEER CALL IN AM DUE TO INSURANCE CLOSED AT THIS TIME.
[2021-11-15 19:43] VITALS: BP 145/98
[2021-11-16 03:51] VITALS: BP 148/85
--- NOTE | 2021-11-16 03:57 | NUR ---
PT IS A&OX4 THIS SHIFT, BUT FORGETFUL AND DOES NOT FOLLOW COMMANDS EASILY, REQUIRES FREQUENT REDIRECTION. AGITATED AROUND HS, REMOVING SENIOR LIVING ADVISOR AND ATTEMPTING TO STAND UNASSISTED. MEDICATED WITH PRN HALDOL AND SEROQUEL. VSS. WILL CONTINUE TO OBSERVE FOR CHANGES.
[2021-11-16 07:41] VITALS: BP 150/87
[2021-11-16 11:47] LABS: HEMATOCRIT 40.2 % (42.0-52.0); HEMOGLOBIN 12.9 gm/dL (14.0-18.0); MCH 29.8 pg (26.0-34.0); MCHC 32.2 g/dL (28.0-37.0); MCV 92.7 fL (80.0-100.0); RBC 4.33 mil/uL (4.50-6.00); RDW 13.9 % (10.5-14.5); WBC 9.5 thou/uL (4.0-11.0)
[2021-11-16 11:59] LABS: ALBUMIN 3.3 g/dL (3.4-5.0); CALCIUM 8.7 mg/dL (8.5-10.1); CREATININE 1.5 mg/dL (0.7-1.3); MAGNESIUM 2.2 mg/dL (1.8-2.4); POTASSIUM 3.9 mmol/L (3.5-5.1); TOTAL BILIRUBIN 0.2 mg/dL (0.2-1.0); TOTAL PROTEIN 7.2 g/dL (6.4-8.2)
--- NOTE | 2021-11-16 13:23 | NUR ---
Patient is alert and oriented x4 this shift. Patient is on enhanced precautions. Patient on room air when awake and 1L of oxygen when asleep. Saúl has had a bed bath this shift and has been incontinent of urine. Patient gets up with one assist gait belt and a walker. Patient has a reddened groin. Area was covered with skin barrier ointment. aJn had zinc ointment applied to his coccyx. Patient has an IV in his right hand that is currently infusing with Normal Saline 0.9% at 80 mL's/ hr. Patient will continue to be monitored.
--- NOTE | 2021-11-16 14:34 | NUR ---
Nutrition followup: pt continues on [facility] with COVID. PO intake overall 50% of meals. Today so far has ate 80-100% of meals. Receives glucerna daily, some intake recorded. Weights 337# to 319#. Prior need for diuresis. Follow trends. Folate deficiency, on supplement. 11/14 BM. Plan possible rehab transfer. Low risk with interventions in place.
[2021-11-16 15:24] VITALS: BP 143/101
--- NOTE | 2021-11-16 16:48 | NUR ---
LISS reviewed chart and spoke with nursing and attending physician. Pt remains in Enhanced Isolation due to COVID. Pt is afebrile and on room air. Authorization for inpt acute rehab was denied. Peer to peer completed this afternoon by rehab physician. Denial was overturned. Pt is able to be admitted as rehab status. LISS left voice message for pt's son, Hermes, to provide update. Unsure if pt will be admitted as rehab status later today or tomorrow. Awaiting input from [facility] at this time. LISS is following to assist as needed with discharge planning.
[2021-11-16 19:55] VITALS: BP 106/46
--- NOTE | 2021-11-17 01:44 | NUR ---
PROGRESS PT PROGRESSING WITH GOALS. CONFUSION SUBSIDING AND PT A/O X4. UP WITH 1 GB AND WALKER. ON 1.5 LITERS O2 VIA NC. VSS, TELEMETRY INTACT READING A-PACED WITH RATES IN THE 60'S. STILL REPORTS BACK PAIN AND TAKING HYDROCODONE Q6HRS. PLAN IS TO TRANSITION TO REHAB STATUS TOMORROW.
[2021-11-17 03:14] VITALS: BP 125/66
[2021-11-17 08:24] VITALS: BP 135/71
[2021-11-17 09:01] VITALS: BP 135/71
[2021-11-17] MEDS ORDERED: PEPCID20 MG PO (12:36)
[2021-11-17] MEDS ORDERED: FOLIC ACID1 MG PO (12:36)
[2021-11-17] MEDS ORDERED: SEROQUEL 50 MG50 MG PO (12:36)
[2021-11-17] MEDS ORDERED: HALOPERIDOL 1 MG1 MG PO (12:36)
[2021-11-17] MEDS ORDERED: SEROQUEL 25 MG25 M1 PO (12:36)
[2021-11-17] MEDS ORDERED: VITAMIN C1000 MG PO (12:36)
[2021-11-17] MEDS ORDERED: IPRAT-ALBUT 0.5-3 ML INH (12:36)
[2021-11-17] MEDS ORDERED: TYLENOL325 MG PO (12:36)
[2021-11-17] MEDS ORDERED: ENOXAPARIN40 MG/0.4 SUBQ (12:36)
[2021-11-17] MEDS ORDERED: ZINC SULFATE50 MG PO (12:36)
--- NOTE | 2021-11-17 13:26 | NUR ---
DISCHARGE NOTE: LISS reviewed chart and spoke with nursing and attending physician. Pt is medically stable to discharge to [facility]. Enhanced isolation precautions have been discontinued. Pt to discharge to room 514 later today. LISS spoke with pt's son, Hermes, via phone to provide update and discuss discharge plan. Pt's son is aware and agreeable with plan. Hermes will be visiting tomorrow and will bring clothes and shoes. LISS notified Hermes of rehab team conferences on afternoons. [facility] has accepted pt on service. [facility] is following for possible home O2 if needs. LISS updated both liaisons. Rehab CM to follow and assist as needed with discharge planning.
--- NOTE | 2021-11-17 15:51 | NUR ---
ASSUMED PATIENT CARE AT 0700. A/O X3. GENERLIZED WEAKNESS. ON 2L/NC. LOOSE STOOL. SLOWLY TOWARDS POC GOALS. WILL DC TO [facility] SOON.
== END 2021-11-17 16:05 | DRG 177 ==
LOC: ER 17:38 → 3W 21:31 → EROBS 21:31 → 3W 21:31
PROVIDERS: Emergency Medicine; Nurse Practitioner Family; Specialist; ADMIT Internal Medicine; ATTEND Internal Medicine
PROC: XW033E5 Introduction of Remdesivir Anti-infective into Peripheral Vein, Percutaneous Approach, New Technology Group 5 (ICD-10-PCS; principal; 2021-11-08)
DX: U07.1 COVID-19 (principal); J96.01 Acute respiratory failure with hypoxia; J12.82 Pneumonia due to coronavirus disease 2019; G92.8 Other toxic encephalopathy; Z68.41 Body mass index [BMI] 40.0-44.9, adult; N17.9 Acute kidney failure, unspecified; I10 Essential (primary) hypertension; E03.9 Hypothyroidism, unspecified; Z96.653 Presence of artificial knee joint, bilateral; N40.0 Benign prostatic hyperplasia without lower urinary tract symptoms; M10.9 Gout, unspecified; E66.01 Morbid (severe) obesity due to excess calories; R53.81 Other malaise; G89.29 Other chronic pain; M54.9 Dorsalgia, unspecified; M19.90 Unspecified osteoarthritis, unspecified site; R41.0 Disorientation, unspecified; K21.9 Gastro-esophageal reflux disease without esophagitis; T38.0X5A Adverse effect of glucocorticoids and synthetic analogues, initial encounter; G47.33 Obstructive sleep apnea (adult) (pediatric); Z95.0 Presence of cardiac pacemaker; Z90.49 Acquired absence of other specified parts of digestive tract; Z88.8 Allergy status to other drugs, medicaments and biological substances; Z87.891 Personal history of nicotine dependence; Y92.89 Other specified places as the place of occurrence of the external cause
CPT/HCPCS: 10879

== ENCOUNTER 2021-11-16 20:29 | Inpatient (IN) | payer OTHER ==
[~2021-11-16] VITALS: Ht 180.3 cm; Wt 142.0 kg
[~2021-11-16 20:29] MED LIST changes: +B12-FOLIC ACID1 EACH PO; +CARVEDILOL12.5 MG PO; +ENTRESTO 97 MG1 EACH PO; +FLOMAX0.4 MG PO; +RANITIDINE PO; +TORSEMIDE20 MG PO
[2021-11-17] MEDS ORDERED: ENOXAPARIN40 MG/0.4 SUBQ (12:36)
[2021-11-17] MEDS ORDERED: SEROQUEL 50 MG50 MG PO (12:36)
[2021-11-17] MEDS ORDERED: PEPCID20 MG PO (12:36)
[2021-11-17] MEDS ORDERED: HALOPERIDOL 1 MG1 MG PO (12:36)
[2021-11-17] MEDS ORDERED: ZINC SULFATE50 MG PO (12:36)
[2021-11-17] MEDS ORDERED: SEROQUEL 25 MG25 M1 PO (12:36)
[2021-11-17] MEDS ORDERED: IPRAT-ALBUT 0.5-3 ML INH (12:36)
[2021-11-17] MEDS ORDERED: FOLIC ACID1 MG PO (12:36)
[2021-11-17] MEDS ORDERED: VITAMIN C1000 MG PO (12:36)
[2021-11-17] MEDS ORDERED: TYLENOL325 MG PO (12:36)
--- NOTE | 2021-11-17 19:02 | NUR ---
PT ADMITTED TO 514 FROM [facility] AT 1607. PT A&OX4. INCONTINENT OF B&B. PT CAME VIA BED WITH NO PERSONAL BELONGINGS. PT IS ON 2L NC. PT IS 313LBS MAX X2 ASSIST.
[2021-11-17 20:38] VITALS: BP 100/49
--- NOTE | 2021-11-18 00:37 | NUR ---
PT ALERT AND ORIENTED X 4. 02 ON AT 2L PER NC. PT REMOVES 02 FREQUENTLY. PT C/O PAIN IN BACK. HYDROCODONE GIVEN ORDERED. PT TAKES MEDS WITH WATER WITHOUT DIFFICULTY. BED ALARM ON FOR SAFETY. PT APPEARS TO BE SLEEPING ON HOURLY ROUNDS.
[2021-11-18 05:43] LABS: HEMATOCRIT 38.5 % (42.0-52.0); HEMOGLOBIN 12.2 gm/dL (14.0-18.0); MCH 29.5 pg (26.0-34.0); MCHC 31.7 g/dL (28.0-37.0); MCV 92.9 fL (80.0-100.0); RBC 4.14 mil/uL (4.50-6.00); RDW 14.1 % (10.5-14.5); WBC 8.1 thou/uL (4.0-11.0)
[2021-11-18 05:44] LABS: CALCIUM 8.6 mg/dL (8.5-10.1); CREATININE 1.3 mg/dL (0.7-1.3); POTASSIUM 3.8 mmol/L (3.5-5.1)
--- NOTE | 2021-11-18 10:24 | NUR ---
PT WORKING WITH THERAPY THIS AM. PT UP IN [place] AND WALKING WITH WALKER. PT STATED HE IS TIRED FROM THERAPY. PT WAS INCONT OF URINE THIS AM PRIOR TO WORKING WITH THERAPY. PT IS IMPULSIVE AT TIMES AND DOES NOT CALL FOR ASSISTANCE. 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
--- NOTE | 2021-11-18 10:38 | NUR ---
ADM HYDROCODONE 7.5MG PT FOR PAIN TO LOWER BACK ON 4 ON 1-10 SCALE.
[2021-11-18 10:43] VITALS: BP 103/79
[2021-11-18 10:44] VITALS: BP 103/79
--- NOTE | 2021-11-18 14:27 | NUR ---
PT WAS STANDING UP BY RECLINER. ENCOURAGED PT TO SIT DOWN. ASKED IF PT WOULD LIKE TO LAY DOWN TO REST PRIOR TO DINNER. PT REFUSED TO LAY DOWN, PT DID SIT AND ELEVATED LEGS ON RECLINER CHAIR. PT DOES HAVE A DRY COUGH.
[2021-11-18 20:00] VITALS: BP 145/87
--- NOTE | 2021-11-19 03:32 | NUR ---
assumed care approx 1900 evening 11/18. pt sitting up in recliner at change of shift. assist into bed at hs. pt impulsive tonight sitting on edge of bed not wanting to lie down. pt restless throughout night, given po Seroquel as ordered. pt up to recliner again and now back to bed, max assist to bed. bed alarm on and call light in reach. will continue to monitor.
[2021-11-19 11:44] LABS: BE(vivo) 5.2 mmol/L (-2 to +3); HCO3 31.6 mmol/L (22.0-26.0); PCO2 54.8 mmHg (35.0-45.0); PO2 62.8 mmHg (80.0-100.0); pH 7.379 (7.360-7.450); sO2 91.2 % (92.0-98.0)
--- NOTE | 2021-11-19 16:30 | NUR ---
THIS NURSE ASSUMED CARE OF PATIENT AT 0700. PATIENT REFUSED VITAL SIGNS ADMINISTRATION BUT WAS ABLE TO GET VS LATER DURING SHIFT. RT HELPED WITH GURGLING SOUNDS OF LUNGS. PATIENT VISITED BY DAUGHTER. PATIENT A&O X 3. PATIENT SLEPT MOST OF THIS SHIFT.
[2021-11-19 20:46] VITALS: BP 126/60
--- NOTE | 2021-11-19 23:28 | NUR ---
PT ALERT AND ORIENTED X 4, CONFUSED AT TIMES. PT TAKES MEDS WITH WATER WITHOUT DIFFICULTY. INCONT OF URINE. HAS NOT BEEN IMPULSIVE SO FAR TONIGHT. BED ALARM ON FOR SAFETY. PT APPEARS TO BE SLEEPING ON HOURLY ROUNDS.
[2021-11-20 04:42] LABS: ABSOLUTE NEUTROPHILS 5.9 thou/uL (1.4-8.2); BASOPHILS 0.4 % (0.0-2.0); EOSINOPHILS 2.7 % (0.0-3.0); HEMATOCRIT 46.1 % (42.0-52.0); LYMPHOCYTES 19.9 % (24.0-44.0); MCH 28.8 pg (26.0-34.0); MCHC 30.9 g/dL (28.0-37.0); MCV 93.2 fL (80.0-100.0); MONOCYTES 11.3 % (1.0-8.0); PLATELET COUNT 151 thou/uL (150-400); POLYS 65.7 % (36.0-66.0); RBC 4.95 mil/uL (4.50-6.00); RDW 14.4 % (10.5-14.5)
[2021-11-20 05:02] LABS: ALBUMIN 2.8 g/dL (3.4-5.0); CALCIUM 8.9 mg/dL (8.5-10.1); CREATININE 1.1 mg/dL (0.7-1.3); PHOSPHORUS 2.6 mg/dL (2.6-4.7); POTASSIUM 3.6 mmol/L (3.5-5.1); TOTAL BILIRUBIN 0.4 mg/dL (0.2-1.0); TOTAL PROTEIN 6.7 g/dL (6.4-8.2)
[2021-11-20 05:17] LABS: HEMOGLOBIN 14.3 gm/dL (14.0-18.0)
[2021-11-20 08:51] VITALS: BP 152/67
--- NOTE | 2021-11-20 12:26 | NUR ---
Nutrition: pt transferred to [facility] from [facility]. Acute care stay for COVID, current dx acute metabolic encephalopathy/COVID. Intake fair on acute, 50-100% of meals past several days. Pt reports UBW 300#. Hospital weights running higher. Prior need for diuresis, now on torsemide. Had glucerna ordered on acute, Will D/C as had not been drinking. Folic acid deficiency. On supplement and vitamin pack. 11/19 BM. Consider low nutrition risk.
--- NOTE | 2021-11-20 16:32 | NUR ---
81 yr old male came to ED due to weakness. he was diagnosed with covid 19+ , and acute respiratory failure. Enhanced Isolation. Had Covid treatment and was requiring oxygen. 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 psych involved. behaviors improved. He is out of isolation for covid. DX: encephalopathy and debilitation. Chart review. Prior to hospital he was living at home with , daughter and son Dawson. 2 steps to enter the home. FWW and w/c out in the community . independent with ADLs, has assist with lower body dressing. IADLs shared. STILLAGUAMISH. Family reports daughter and son can physical assist him upon discharge home.
--- NOTE | 2021-11-20 17:50 | NUR ---
THIS NURSE ASSUMED CARE OF PATIENT AT 0700. PATIENT COOPERATIVE AND PLEASANT WITH THERAPIES THROUGH OUT SHIFT. PATIENT EXPRESSES NEED FOR PAIN MEDICATION BUT MEDICATION MAKES PATIENT CONFUSED. PATIENT ENJOYED MEALS THROUGH OUT SHIFT. PATIENT AMBULATED TO WHEELCHAIR FOR MEALS.
--- NOTE | 2021-11-20 18:01 | NUR ---
PATIENT COMPLETED CXT. RESULTS: NO PNEUMOTHORAX, NO CONSOLIDATIONS OR PLEURAL EFFUSIONS, AND NO CARDIOPULMONARY PROCESS DETECTED. PATIENT COMPLETED XR OF LEFT WRIST. RESULTS: NO FRACTURES AND JOINT SPACE LOSS OF RADIOCARPAL JOINT. PATIENT COMPLETED LEFT VENOUS DOPPLER. RESULTS: NO EVIDENCE OF DVT OF LOWER LEFT EXTREMITIES.
[2021-11-20 20:35] VITALS: BP 142/81
--- NOTE | 2021-11-21 05:54 | NUR ---
patient aox1 confused and forgeful. patient need maximum of two for transfer, bed mobility, toileting and bed mobility. patient uses urinal. patient encouraged fluids. fall precaution in place. patient in bed asleep at this time beathing regular and unlaboured.
[2021-11-21 08:00] VITALS: BP 117/73
--- NOTE | 2021-11-21 15:38 | NUR ---
PATIENT A&O X 3 WITH CONFUSION AND FORGETFULNESS. PATIENT AMBULATES WITH MAX ASSIST OF 2 TO CHAIR AND WHEELCHAIR. PATIENT USES URINAL. PATIENT DID NOT EAT LUNCH THIS SHIFT. PATIENT HAS LOWER EDEMA OF EXTREMITIES BILATERALLY. PATIENT HAS LEFT-SIDED PACEMAKER.
[2021-11-21 19:30] VITALS: BP 130/65
--- NOTE | 2021-11-22 02:07 | NUR ---
PT DENIED PAIN SO FAR ,REF THE SCHEDULED TYLENOL.UP WITH ASSIST /GB AND WALKER TO THE BR.PT NOT COMPLIANT WITH FALL PRECAUTIONS,GETS OUT OF BED WITHOUT ASSISTNACE.EDUCATION GIVEN.BLE EDEMA NOTED,PT REF TO ELEVATE LEGS WHILE IN BED.URINAL AT BEDSIDE.NON PRODUCTIVE COUGH NOTED.NO BM NOTED SO FAR.FALL PRECAUTIONS IN PLACE,CALL BACK WITHIN REACH.
[2021-11-22 08:00] VITALS: BP 144/68
--- NOTE | 2021-11-22 15:12 | NUR ---
PT C/O PAIN IN LOWER BACK THIS AM, RATING "15" OUT OF 10 ON PAIN SCALE. NORCO 1 TAB GIVEN WITH PARTIAL PAIN RELIEF BEING ACHIEVED. ABLE TO USE URINAL WITH SUPERVISION. DENIES ANY OTHER NEEDS AT THIS TIME.
[2021-11-22 21:08] VITALS: BP 158/82
--- NOTE | 2021-11-23 01:05 | NUR ---
PT ALERT AND ORIENTED X 4, CONFUSED AT TIMES. INCONT OF URINE. PT TAKES MEDS WITH WATER WITHOUT DIFFICULTY. PT REFUSES TYLENOL. STATES IT DOES NOT WORK FOR HIM. CONGESTED NON-PRODUCTIVE COUGH NOTED. BED ALARM ON FOR SAFETY. PT APPEARS TO BE SLEEPING ON HOURLY ROUNDS.
[2021-11-23 08:00] VITALS: BP 167/84
--- NOTE | 2021-11-23 15:49 | NUR ---
Team meeting, recommendation, had a kub today, and will need ct scan as well. Reteam next week and cont therapy. Cm visited with patient at bedside, he agreed to cont. with therapy.
--- NOTE | 2021-11-23 16:03 | NUR ---
I have reviewed the documentation by HARMONY TO from 11/23/21 to 11/23/21 and I concur with it. ROLANDO LUNA
--- NOTE | 2021-11-23 18:01 | NUR ---
PT A&OX4 MILD CONFUSION, C/O BACK PAIN, REFUSING TYLENOL. PT REPORTS HE TAKES AN INHALER 3 TIMES A DAY AT HOME TO HELP HIS COUGH. USING URINAL DURING THE DAY. IV PLACED IN L AC FOR CT WITH CONTRAST SCHEDULED FOR THIS EVENING.
[2021-11-23] MEDS ORDERED: NORCO 10-325 T1 EACH PO (18:27)
[2021-11-23 20:16] VITALS: BP 111/62
--- NOTE | 2021-11-24 02:18 | NUR ---
PT ASSESSMENT COMPLETED AND VSS. MEDS GIVEN ORDERED AND WELL TOLERATED. FALL PRECAUTIONS IN PLACE. SAT WNL ON 1L NC AT HS. PT DENIES PAIN THIS EVENING. ASST WITH REPOSITION FOR COMFORT. PER ORDER OK TO WAIT UNTIL TOMMOROW TO DO PT CT. PT SLEEPING WELL. DENIES NEEDS. WILL CONTINUE TO MONITOR FREQUENTLY.
[2021-11-24 05:57] LABS: ABSOLUTE NEUTROPHILS 4.5 thou/uL (1.4-8.2); BASOPHILS 0.4 % (0.0-2.0); EOSINOPHILS 2.9 % (0.0-3.0); HEMATOCRIT 34.4 % (42.0-52.0); HEMOGLOBIN 10.8 gm/dL (14.0-18.0); LYMPHOCYTES 28.4 % (24.0-44.0); MCH 29.6 pg (26.0-34.0); MCHC 31.5 g/dL (28.0-37.0); PLATELET COUNT 242 thou/uL (150-400); POLYS 57.3 % (36.0-66.0); RBC 3.65 mil/uL (4.50-6.00); RDW 14.2 % (10.5-14.5); WBC 7.9 thou/uL (4.0-11.0)
[2021-11-24 06:12] LABS: CALCIUM 8.3 mg/dL (8.5-10.1); CREATININE 1.4 mg/dL (0.7-1.3); MAGNESIUM 1.9 mg/dL (1.8-2.4); POTASSIUM 4.1 mmol/L (3.5-5.1)
[2021-11-24 07:51] VITALS: BP 122/67
[2021-11-24 10:41] LABS: BE(vivo) 3.7 mmol/L (-2 to +3); HCO3 31.9 mmol/L (22.0-26.0); PCO2 67.1 mmHg (35.0-45.0); PO2 67.2 mmHg (80.0-100.0); pH 7.295 (7.360-7.450); sO2 90.7 % (92.0-98.0)
--- NOTE | 2021-11-24 11:15 | NUR ---
[facility] CALLED TO PROVIDER. ORDERS TO HAVE PT WEAR O2 AT ALL TIMES, AND CPAP AT [facility], PT RESTING IN BED AT THIS TIME 02 2L NC ON AT THIS TIME SATS 97-97. PT EASILY AROUSABLE, A&OX4, DRINKING WATER AND TAKING PILLS WHOLE.
[2021-11-24 14:33] LABS: BE(vivo) 4.6 mmol/L (-2 to +3); HCO3 32.6 mmol/L (22.0-26.0); PO2 77.8 mmHg (80.0-100.0); sO2 93.9 % (92.0-98.0)
[2021-11-24 14:34] LABS: PCO2 67.2 mmHg (35.0-45.0); pH 7.304 (7.360-7.450)
--- NOTE | 2021-11-24 17:49 | NUR ---
PT TOLERATING BIPAP WELL SINCE PLACED AT 1145. A&OX4 WITH CONFUSION AT THIS TIME. INCONTENENT BOWEL AND BLADDER. 11/24/21 2 LARGE LOOSE STOOL. PT TO WEAR BIPAP OVER NIGHT. REPORTS HE WANTS TO GO HOME. NS @100 INFUSING X1 BAG.
[2021-11-24 21:24] VITALS: BP 150/42
--- NOTE | 2021-11-25 05:46 | NUR ---
care assumed at 1900 patient was in bed asleep. bipap on. patient aox1 confused and forgetful. patient took meds with a lot of encouragement. patient removed bi pap after several attempt. patient would say things like<<go wear the bipap yourself>> son called and updated on patient. patient incontient this shift pericare and barrier cream applied. fall precaution in place. patient in bed asleep at this time breathing regular and unlaboured.
[2021-11-25 08:00] VITALS: BP 142/70
--- NOTE | 2021-11-25 09:07 | NUR ---
PT SITTING UP IN W/C FOR BREAKFAST. PT SAT 95% WITH OXYGEN ON 2L NC. PT REFUSES BIPAP DURING THE DELFIN. PT LUNGS CLEAR, DIMINISHED. COUGH IS DRY AND NOT FREQUENT. PT USES WALKER WHEN AMBULATING. PT STATED HE HAS SOME BACK PAIN TO LOWER BACK OF 4 ON 1-10 SCALE AND REFUSING TYLENOL AND WANTING A PAIN PILL. PT TOOK MEDS WHOLE WITH WATER. PT INCON. OF URINE THIS AM.
--- NOTE | 2021-11-25 09:12 | NUR ---
PT REQUESTING PAIN MED. ADM NORCO 7.5MG PO FOR LOWER BACK PAIN OF 4 ON 1-10 SCALE.
[2021-11-25 10:19] LABS: BE(vivo) 3.4 mmol/L (-2 to +3); HCO3 30.3 mmol/L (22.0-26.0); PCO2 57.1 mmHg (35.0-45.0); PO2 88.3 mmHg (80.0-100.0); pH 7.343 (7.360-7.450); sO2 96.1 % (92.0-98.0)
[2021-11-25 20:02] VITALS: BP 136/72
--- NOTE | 2021-11-26 01:07 | NUR ---
ASSUMED CARE AT 1915 OF 11/25. PATIENT A&Ox4 WITH INTERMITTENT CONFUSION. IMPULSIVE, AND HAS SET OFF BED ALARM TWICE SO FAR DURING SHIFT. EDUCATION TENNIS INSTRUCTOR LIGHT USAGE AND FALL PRECAUTION PROVIDED. ASSISTED WITH REPOSITIONING. UROLOGY PROVIDER CALLED BACK AT HS AND ORDERED TO HAVE PATIENT NPO AFTER MIDNIGHT & PATIENT WILL BE ASSESSED IN THE MORNING TO DETERMINE PLAN OF CARE. PT USES URINAL AT BEDSIDE WITH SBA. INCONTINENT OF BLADDER AT TIMES. FREQUENT OBSERVATION IMPLEMENTED. FALL PRECAUTIONS IN PLACE, CALL LIGHT WITHIN REACH. WILL CONTINUE TO MONITOR.
[2021-11-26 07:45] VITALS: BP 144/73
--- NOTE | 2021-11-26 08:15 | NUR ---
DR. JUARES HERE TO SEE PT FROM UROLOGY. PT IS ABLE TO EAT. WILL ORDER LABS FOR A REPEAT CT SCAN AND WANTING TO CHECK KIDNEY FUNCTION.
[2021-11-26 09:15] LABS: HEMATOCRIT 40.5 % (42.0-52.0); HEMOGLOBIN 12.3 gm/dL (14.0-18.0); MCH 28.8 pg (26.0-34.0); MCHC 30.5 g/dL (28.0-37.0); MCV 94.4 fL (80.0-100.0); RBC 4.29 mil/uL (4.50-6.00); RDW 14.3 % (10.5-14.5); WBC 6.1 thou/uL (4.0-11.0)
[2021-11-26 09:23] LABS: CALCIUM 9.2 mg/dL (8.5-10.1); CREATININE 1.3 mg/dL (0.7-1.3); POTASSIUM 4.1 mmol/L (3.5-5.1)
--- NOTE | 2021-11-26 10:00 | NUR ---
PT RESTING THIS AM IN BED. PT HAS OXYGEN ON 2L NC. PT NPO FOR UROLOGY CONSULT. PT STATED HE DOES HAVE SOME PAIN TO LEFT LOWER BACK AREA OF 4 ON 1-10 SCALE. PT REFUSING TYLENOL, STATED IT DOESN'T HELP. PT SAT ON SIDE OF BED USING URINAL, PT DOES HAVE SOME DRIBBLING WITH URINAL DUE TO LARGE PANIS. PT HAS BRUISING TO ABD FROM LOVENOLX INJECTIONS. PT LUNGS CLEAR. PT ALERT THIS AM AND NO SIGNS OF CONFUSION.
--- NOTE | 2021-11-26 11:00 | NUR ---
DR. ROGEL WAS HERE AND TALKING TO PATIENT ABOUT USING THE BIPAP WHILE SLEEPING AND NAPPING DUE TO PT RETAINS CO2, PT STATED HE WILL WEAR THE BIPAP WHILE SLEEPING, HE STATED THAT HE DIDN'T GET MUCH SLEEP WITH THE MASK ON HIS FACE, STATED IT TAKES TIME TO GET USED TO IT.
--- NOTE | 2021-11-26 13:17 | NUR ---
CALLED RT AND STATED TO BRING BACK BIPAP MACHINE FOR PT TO USE AT HS OR NAPPING. PT DOWN TO CT SCAN VIA W/C AND OXYGEN ON 3L.
[2021-11-26 19:15] VITALS: BP 132/60
--- NOTE | 2021-11-27 00:55 | NUR ---
ASSUMED CARE AT 1915 OF 11/26. PATIENT IS A&OX2, ABLE TO MAKE NEEDS KNOWN, BUT REMAINS IMPULSIVE. REPORTED BACK PAIN AT HS AND PRN PAIN MEDICATION ADMINISTERED TO MANAGE PAIN. STAND BY ASSIST WITH VOIDING WITH URINAL AT BEDSIDE. PATIENT WAS AGREEABLE TO HAVING BIPAP ON AT HS, BUT REQUIRES CONSTANT REMINDER TO KEEP IT ON. NURSE HAS REAPPLIED MASK ON PATIENT REPEATEDLY AND REITERATED EDUCATION ON IMPORTANCE OF HAVING THE BIBPAP ON. PATIENT HAS BEEN AGREEABLE SO FAR TO PUT MASK BACK ON. FALL PRECAUTIONS IN PLACE, FREQUENT OBSERVATION IMPLEMENTED. CALL LIGHT WITHIN REACH. WILL CONTINUE TO MONITOR.
[2021-11-27 08:00] VITALS: BP 140/90
--- NOTE | 2021-11-27 13:22 | NUR ---
Nutrition followup: pt overall eating fairly well, 75-100% of recent meals. Noted pt needs to wear bipap at night and has not been so is currently SOB and a bit lethargic. 2/6 BM. No new weight. Meds torsemide lactulose, vitamin pack. Continue as low nutrition risk.
[2021-11-27 19:50] VITALS: BP 142/63
--- NOTE | 2021-11-28 00:05 | NUR ---
PT ALERT AND ORIENTED X 4, CONFUSED AT TIMES. 02 ON AT 3L PER NC CONT. DISCUSSED WITH PT AT START OF SHIFT IMPORTANCE OF BIPAP. PT STATED THEN THAT HE WOULD NOT BE USING IT TONIGHT. RT IN AT THIS TIME AND PT STILL REFUSING BIPAP. PT C/O PAIN IN HIS BACK. SOME RELIEF OF PAIN WITH TYLENOL WHEN HE IS NOT REFUSING TO TAKE IT. CONGESTED NON-PRODUCTIVE COUGH NOTED. VOIDING PER URINAL WITH ASSISTANCE. BED ALARM ON FOR SAFETY. PT APPEARS TO BE SLEEPING ON HOURLY ROUNDS.
--- NOTE | 2021-11-28 17:18 | NUR ---
ASSUMED PATIENT CARE THIS AM AT 0700. PATIENT WAS CALM AND COOPERATIVE THROUGHOUT THE SHIFT. DENIED PAIN, OR ANY OTHER COMPLIANTS. PATIENT HAD 1 LARGE LOOSE STOOL, AND DECENT URINE OUTPUT. PATIENT DID NEED TO BE REMINDED TO USE HIS CALL LIGHT WHEN NEEDING TO GET UP TO USE THE URINAL.
[2021-11-28 20:00] VITALS: BP 119/71
[2021-11-29 08:00] VITALS: BP 111/79
--- NOTE | 2021-11-29 09:00 | NUR ---
PT SITTING ON SIDE OF BED WITH COURSE COUGH. ENCOURAGED FLUTTER VALVE, PT USING AT BEDSIDE AFTER EDUCATED ON USE.
--- NOTE | 2021-11-29 10:16 | NUR ---
PT WORKING WITH THERAPY THIS AM. PT HAS OXYGEN ON 1L NC. PT STATED HIS PAIN IS TO LEFT SIDE OF BACK OF 6 ON 1-10 SCALE. PT VOIDING WITHOUT ANY PROBLEMS. PT LUNGS CLEAR, DIMINISHED TO BASES. PT REFUSES TYLENOL SCHEDUALED STATING THAT IT DOESN'T HELP. PT TAKES HYDROCODONE AT HOME. ADM HYDROCODONE 5MG PO FOR PAIN TO LEFT FLANK AREA OF 6 ON 1-10 SCALE.
--- NOTE | 2021-11-29 14:36 | NUR ---
Team yosi tomorrow with anticipated dc on Friday 12/01. Rashida is following and advised of anticipated dc date. Pt has FWW and w/c at home. Weaning off o2. Will discuss any other dme in needs in team conf and request exercise ox/ra sat if o2 is indicated.
--- NOTE | 2021-11-29 17:43 | NUR ---
PT STATED HE WAS HURTING TO LEFT SIDE OF BACK OF 6 ON 1-10 SCALE. ADM NORCO 5MG PO FOR PAIN.
--- NOTE | 2021-11-29 18:29 | NUR ---
PT SON WAS HERE TO SEE PT AND ALSO TO SAY HE WILL BE HERE SATURDAY AROUND 11 OR NOON FOR DISCHARGE INSTRUCTIONS. HE STATED THAT HIS SISTER WILL NOT BE ABLE TO BE HERE TOMMORROW DUE TO ROTATOR CUFF REPAIR RECENTLY.
[2021-11-29 19:53] VITALS: BP 124/97
[2021-11-30 02:42] LABS: ABSOLUTE NEUTROPHILS 3.3 thou/uL (1.4-8.2); BASOPHILS 0.4 % (0.0-2.0); EOSINOPHILS 3.4 % (0.0-3.0); HEMATOCRIT 33.9 % (42.0-52.0); LYMPHOCYTES 35.3 % (24.0-44.0); MCHC 32.4 g/dL (28.0-37.0); MCV 92.7 fL (80.0-100.0); MONOCYTES 10.5 % (1.0-8.0); PLATELET COUNT 191 thou/uL (150-400); POLYS 50.4 % (36.0-66.0); RBC 3.65 mil/uL (4.50-6.00); WBC 6.5 thou/uL (4.0-11.0)
--- NOTE | 2021-11-30 03:36 | NUR ---
PT BEEN RESTING IN NO ACUTE DISTRESS.A/OX3.VSS.PT BEEN SLEEPING ON AND OFF.SITTING UP AT THE SIDE OF THE BED AT TIMES.ON O2 AT 1LITERS PNC AT THE BEGINNING OF THE SHIFT AND THEN ON RA SINCE 1AM.NO RESP DISTRESS REPORTED.PT PROGRESSING TOWARDS DISCHARGE GOAL.DISCHARGE DAY SET FOR THIS SATURDAY.PT DENIES ANY CONCERNS AT THIS TIME.
[2021-11-30 04:01] LABS: CALCIUM 8.4 mg/dL (8.5-10.1); CREATININE 1.6 mg/dL (0.7-1.3); MAGNESIUM 1.8 mg/dL (1.8-2.4); POTASSIUM 4.6 mmol/L (3.5-5.1)
[2021-11-30 11:07] VITALS: BP 124/75
--- NOTE | 2021-11-30 13:43 | NUR ---
Team meeting, will need assist with bills and pills. 13/05 supervision. will she need oxygen at dc. moderate cognitions deficits and severe memory deficits. Family training before she is able to dc tomorrow 12/01. Rashida coronado.
[2021-11-30 16:21] VITALS: BP 124/75
[2021-11-30 20:15] VITALS: BP 147/78
--- NOTE | 2021-12-01 04:28 | NUR ---
assumed care approx 1900 evening 11/30. pt lying in bed dozing off and on at change of shift. pt with loose, non-productive cough. pt on room air until approx 0330 when O2 sat 91%. placed on 1L per n/c. O2 sats checked q3hrs and documented on vitals. pt appears to be sleeping at present. bed alarm on and call light in reach. will continue to monitor.
[2021-12-01 08:42] VITALS: BP 124/75
[2021-12-01] MEDS ORDERED: IPRAT-ALBUT 0.5-3 ML INH (09:17)
[2021-12-01] MEDS ORDERED: COLACE100 MG PO (09:21)
[2021-12-01] MEDS ORDERED: PEPCID20 MG PO (09:21)
[2021-12-01] MEDS ORDERED: SEROQUEL 25 MG25 M1 PO (09:21)
[2021-12-01 09:52] VITALS: BP 124/75
[2021-12-01 10:20] VITALS: BP 128/86
[2021-12-01] MEDS ORDERED: VITAMIN D250 MC1 PO (11:53)
--- NOTE | 2021-12-01 15:55 | NUR ---
Script for home o2 and clincial faxed and verified with [facility] for setup today. Pt has portable for the ride home in his room. Pt qualifies for 3months of o2 due to covid 19 dx/respiratory issues. HH orders faxed and confirmed with [facility]. They will be out to see him in 1-2 days. Case closed.
--- NOTE | 2021-12-03 12:57 | HC ---
[facility] [place] [address] CONSULTATION Name: PIERCE VELAZQUEZ Room #: 514-P [facility] IN M.R.#: [id number] Admission: 11/17/21 Attend Phys: Herbert Arreola MD Discharge: 12/01/21 Date of : 36 Report #: [id number] THIS REPORT FOR: cc: KAMERON - Family physician unknown FAM - Family physician unknown Oliver Weaver PhD ~ DATE OF SERVICE: 11/30/2021 NEUROBEHAVIORAL STATUS EXAM ATTENDING PHYSICIAN: Herbert Arreola MD UNDERGROUND PRODUCTION FOREPERSON: Oliver Weaver, PhD CLINICAL PRESENTATION: The patient is an 81-year-old male admitted to the hospital on 11/17/2021 due to weakness. He was diagnosed with COVID-19, acute respiratory failure, and was admitted in isolation. He has a medical problem list that included contusion of the face, COVID-19, face lacerations, fall, hypoxia, knee contusion, pneumonia, viral URI, and weakness. His assessment on the rehabilitation unit was acute metabolic encephalopathy, medical complexity with generalized debilitation, COVID-19, acute hypoxic respiratory failure, chronic back pain, DJD, history of bilateral total knee replacement, hypothyroidism, BPH, and obesity. A complete description of his medical condition and history along with medications can be found in his medical record. Neuropsychological consultation was requested to provide assistance in the assessment of cognitive and emotional status and to provide recommendations and services. Prior to this most recent event, he was living with his . The patient has 4 children. He was an automotive welder prior to alf. He has a 10th grade education. He did not reported a history of having had treatment for mood disorder. His oldest son is helping he and his . The patient reports having been independent with instrumental activities of daily living including driving. He is hard of hearing. TECHNIQUES UTILIZED: Clinical interview, review of medical records, staff consultation, and behavioral observation, mini mental status exam 2 standard version, clock drawing, and verbal fluency assessment. EXAMINATION FINDINGS: The patient was alert and cooperative. There is no evidence of aphasia. Thoughts are logical and goal oriented. There is no evidence of thought disorder. He does not report auditory or visual hallucinations currently, however, he reported having experienced visual hallucinations during his initial hospitalization, but those have resolved. He describes his symptoms to include word finding and variability with memory [facility] [address] [place] [address] CONSULTATION Name: PIERCE VELAZQUEZ Room #: 514-P [facility] IN M.R.#: [id number] Admission: 11/17/21 Attend Phys: Herbert Arreola MD Discharge: 12/01/21 Date of : 36 Report #: [id number] and difficulty walking with his legs, now much weaker. His performance on the MMSE 2 standard version within the moderate range of impairment. He was 3/3 for initial registration, 4/5 for orientation to time, 5/[address], and 0/3 for immediate recall of 3 items after a brief time delay and distraction. Overall, raw score was 12/16 on the basic version. Performance on the MMSE 2 standard version was 28 of 30, which is a T-score of 32 and percentile rank of 4. He was 1/5 for serial sevens, 2/2 for naming. He is unable to repeat a single sentence. Difficulty with repetition is primarily related to hearing. Comprehension was 3/3. I was able to read and follow a single command and write a sentence. The patient was unable to copy a simple geometric design. Performance in category fluency was a T-score of 51, which is in the 50th percentile and within normal limits. The patient is presenting with mild deficits in neurocognitive functioning. He does not report problems with anxiety or depression, but does acknowledge difficulty in cognition. Upper extremity dexterity is likely to be reduced as visual spatial construction was impaired. Immediate recall was also showing deficits. 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 RECOMMENDATIONS: The patient will likely require increased assistance with instrumental activities of daily living upon discharge. Included would be help in the management of medication, finances, and nutrition. Driving should be discontinued until a more thorough neuropsychological assessment of functioning can be completed. A behind the wheel driving evaluation can also assist with decision making regarding driving. Continued use of speech therapy to assist in the development of compensatory strategies for cognitive deficits. Family education will be necessary to improve their understanding of his current cognitive limitations and strategies to assist with compensation. Thank you very much for allowing me to provide the consultation on this patient. <ELECTRONICALLY SIGNED> By: Oliver Weaver, PhD 12/03/21 [id number] Oliver Weaver, PhD /nt
== END 2021-12-01 12:45 | disposition home health service (06) | DRG 91 ==
PROVIDERS: Internal Medicine; Nurse Practitioner; Nurse Practitioner Family; Pediatrics; Urology; ADMIT Physical Medicine & Rehabilitation; ATTEND Physical Medicine & Rehabilitation
PROC: 5A09357 Assistance with Respiratory Ventilation, Less than 24 Consecutive Hours, Continuous Positive Airway Pressure (ICD-10-PCS; principal; 2021-11-24)
PROC: 5A09357 Assistance with Respiratory Ventilation, Less than 24 Consecutive Hours, Continuous Positive Airway Pressure (ICD-10-PCS; 2021-11-25)
DX: G92.8 Other toxic encephalopathy (principal); J96.01 Acute respiratory failure with hypoxia; U07.1 COVID-19; J12.82 Pneumonia due to coronavirus disease 2019; E43 Unspecified severe protein-calorie malnutrition; N17.9 Acute kidney failure, unspecified; Z68.41 Body mass index [BMI] 40.0-44.9, adult; R53.81 Other malaise; N18.9 Chronic kidney disease, unspecified; N40.0 Benign prostatic hyperplasia without lower urinary tract symptoms; E03.9 Hypothyroidism, unspecified; G89.29 Other chronic pain; M54.9 Dorsalgia, unspecified; Z96.653 Presence of artificial knee joint, bilateral; M10.9 Gout, unspecified; I12.9 Hypertensive chronic kidney disease with stage 1 through stage 4 chronic kidney disease, or unspecified chronic kidney disease; N28.1 Cyst of kidney, acquired; K21.9 Gastro-esophageal reflux disease without esophagitis; G47.33 Obstructive sleep apnea (adult) (pediatric); E86.0 Dehydration; E66.01 Morbid (severe) obesity due to excess calories; Z88.8 Allergy status to other drugs, medicaments and biological substances; Z87.891 Personal history of nicotine dependence; Z95.0 Presence of cardiac pacemaker; Z90.49 Acquired absence of other specified parts of digestive tract; Z79.82 Long term (current) use of aspirin; Z79.899 Other long term (current) drug therapy; Z79.891 Long term (current) use of opiate analgesic
CPT/HCPCS: 10112